=== PATIENT | male | born 2000 | race Hispanic/Latino ===

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

== ENCOUNTER 2024-02-29 21:21 | Emergency (ER) | payer BC, OTHER ==
[~2024-02-29] VITALS: Ht 175.3 cm; Wt 93.9 kg
--- NOTE | 2024-02-29 21:50 | ERN ---
ED Note History of Present Illness Stated Complaint: C/O PAIN TO RIGHT LITTLE FINGER; Chief Complaint: Finger Injury Time Seen by MD: 21:44 Dictation: PATIENT IS A 23-YEAR-OLD MALE HERE WITH COMPLAINTS OF RIGHT 5TH FINGER PAIN WITH ANGULATION AT THE D IP JOINT ONSET 1 HOUR PRIOR TO ARRIVAL. HE STATES HE WAS WALKING AT HOME WENT TO [employer] OPERATOR HIS NEPHEW, TRIPPED AND LANDED ON HIS EXTENDED RIGHT HAND. HE STATES HE GRABBED IT AND PULLED IT BACK INTO PLACE. REMAINS ANGULATED DISTALLY. NEUROVASCULAR CMS INTACT SKIN IS INTACT. Allergies: Coded Allergies: No Known Allergies (Unverified Allergy, Unknown, 02/29/24) Past Medical History Past Medical History: No Pertinent History Surgical History: None RN Note Reviewed/Agreed w/PFSH: Yes Review of System Dictation CONSTITUTIONAL: NEGATIVE EXCEPT FOR HPI HEAD/FACE: NEGATIVE EXCEPT FOR HPI EENT: NEGATIVE EXCEPT FOR HPI RESPIRATORY: NEGATIVE EXCEPT FOR HPI GASTROINTESTINAL/ABDOMINAL: NEGATIVE EXCEPT FOR HPI GENITOURINARY: NEGATIVE EXCEPT FOR HPI MUSCULOSKELETAL: NEGATIVE EXCEPT FOR HPI RIGHT 5TH FINGER PAIN DISTALLY INTEGUMENTARY: NEGATIVE EXCEPT FOR HPI NEUROLOGICAL/PSYCH: NEGATIVE EXCEPT FOR HPI HEMATOLOGIC/LYMPHATIC: NEGATIVE EXCEPT FOR HPI ALL SYSTEMS NEGATIVE, EXCEPT NOTED ABOVE. 13 POINT REVIEW OF SYSTEMS ASSESSED AND ALL NEGATIVE EXCEPT FOR ABOVE. Initial Vital Sign VS Vital Signs Date Time Temp Pulse Resp B/P (MAP) Pulse Ox O2 Delivery O2 Flow Rate FiO2 02/29/24 21:23 99.0 89 20 133/79 97 Room Air 02/29/24 21:56 0 21 Physical Exam Dictation VITAL SIGNS REVIEWED GENERAL APPEARANCE: ALERT, ORIENTED X 3, MILD ACUTE DISTRESS, WELL DEVELOPED, NOURISHED. HEAD AND FACE: NON-TRAUMATIC. EYES: PERRL, PINK CONJUNCTIVAS, EYELID NO TRAUMA, ANTERIOR CHAMBER WITH ARCUS SENILIS. EARS: PINNAS INTACT AND NO SIGNS OF TRAUMA OR ERYTHEMA EAR CANALS CLEAR AND NO DISCHARGE TM NO ERYTHEMA NOSE: NO DISCHARGE, NO BLEEDING. OROPHARYNX: MOUTH NORMAL, TONGUE PINK, PHARYNX CLEAR,NO ERYTHEMA, TONSILS NO EXUDATES, NO ABSCESSES NOTED, MUCOUS MEMBRANE MOIST NECK: SUPPLE, NON-TENDER, NO THYROMEGALY, NO MASSES, NO JVD, NO BRUITS BREAST:DEFERRED CHEST:NO TENDERNESS, NO CREPITUS, NO PARADOXICAL MOVEMENT, NO RETRACTIONS LUNGS:CLEAR, WELL-VENTILATED, SYMMETRIC, NO RALES, NO WHEEZING, NO RHONCHI, NO STRIDOR, GOOD BREATH SOUNDS BILATERALLY HEART: REGULAR RATE, REGULAR RHYTHM, NO MURMUR, NO GALLOPS VASCULAR: NO PERIPHERAL EDEMA, ABDOMEN: SOFT, POSITIVE BOWEL SOUNDS, NONDISTENDED, NO GUARDING, NONTENDER, NO REBOUND, NO MASSES NO HEPATOMEGALY, NO SPLENOMEGALY, NO TREJO'S SIGN, NO HERNIAS. RECTAL: DEFERRED GENITAL: DEFERRED NEUROLOGICAL: NORMAL SPEECH, MOTOR FUNCTION INTACT, SENSORY FUNCTION INTACT MUSCULOSKELETAL: NECK NONTENDER, FULL RANGE OF MOTION, BACK NONTENDER, FULL RANGE OF MOTION, EXTREMITIES: DECREASED RANGE OF MOTION WITH TENDERNESS TO RIGHT 5TH D IP JOINT. MILDLY ANGULATED SKIN: COLOR PINK, DRY, NO TURGOR, NO RASH, NO LACERATIONS, NO ABRASIONS, NO CONTUSIONS. LYMPHATIC: DEFERRED Results (Laboratory/Radiology) Laboratory/Radiology FINGER(S) 2+VWS RT CLINICAL HISTORY: INJURY COMPARISON: None TECHNIQUE: 2 images were obtained. FINDINGS: There is mild subluxation of the DIP joint of the fifth digit worrisome for underlying ligamentous injury. There is no identified bony trauma. IMPRESSION: Findings concerning for fifth digit ligamentous injury with no identified bony trauma Labs Reviewed?: Yes ED Course ED Course Orders Procedure Category Date Status Time Finger(S) 2+Vws Rt RAD 02/29/24 Resulted 21:26 Ibuprofen 800 Mg Tab PHA 02/29/24 Complete (Motrin) 22:00 Current Medications Medications (Trade) Dose Ordered Sig/[place] Route PRN Reason Start Time Stop Time Status Last Admin Dose Admin Ibuprofen (moTRIN) 800 mg ONCE ONCE PO 02/29/24 22:00 02/29/24 22:01 DC 02/29/24 21:56 Vital Signs Date Time Temp Pulse Resp B/P (MAP) Pulse Ox O2 Delivery O2 Flow Rate FiO2 02/29/24 21:56 98.8 82 18 126/72 98 Room Air* 0 21 02/29/24 21:23 99.0 89 20 133/79 97 Room Air 04/27/2034, PATIENT PLACED IN DORSAL SPLINT TO KEEP HIS DISTAL INTERPHALANGEAL JOINT BY TECH. DISTAL PHALANX WAS MILDLY HYPEREXTENDED DUE TO POSSIBLE RUPTURED LIGAMENT INJURY. EXPLAINED TO PATIENT THE NECESSITY TO FOLLOW UP WITH AN ORTHOPEDIC SURGEON IN THE NEXT SEVERAL DAYS AND MAINTAIN SPLINT. NEUROVASCULAR CMS INTACT POST PLACED Medical Decision Making MDM MEDICAL DISCHARGE MAKING BASED ON X-RAY OF RIGHT LITTLE FINGER AND SPLINT TO MAINTAIN DISTAL FINGER MILDLY HYPEREXTENDED DISCHARGED HOME WITH IBUPROFEN AND INSTRUCTIONS TO FOLLOW UP WITH DR. COTA DX & DISP Disposition: Discharge Departure Impression: Primary Impression: Rupture of ligament of finger of right hand Condition: Stable Scripts Ibuprofen (Ibuprofen 800 mg Tab) 800 Mg Tab 800 MG PO Q8H PRN for fever or pain, #30 TAB 0 Refills Prov: CARMELLA RITTER NP 02/29/24 Additional Instructions: FOLLOW-UP WITH PRIMARY CARE PROVIDER IN 1 TO 2 DAYS. TAKE MEDICATIONS DIRECTED HERE IN THE EMERGENCY ROOM. OKAY TO CONTINUE HOME MEDICATIONS UNLESS OTHERWISE DISCUSSED DURING YOUR VISIT IN THE EMERGENCY ROOM TODAY. RETURN TO YOUR NEAREST EMERGENCY ROOM IF SYMPTOMS WORSEN OR IF THERE IS NO IMPROVEMENT. CALL 911 IF YOU NEED IMMEDIATE ASSISTANCE. TAKE TYLENOL OR MOTRIN OVER-THE- COUNTER NEEDED AND IF NO CONTRAINDICATIONS ARE PRESENT. INCREASE ORAL HYDRATION. A WOUND CULTURE OR URINE CULTURE WAS ORDERED HERE IN THE EMERGENCY ROOM DEPARTMENT PLEASE FOLLOW-UP WITH PRIMARY CARE PROVIDER AND ADVISE THEM TO GET REPEAT PORTS FROM OUR FACILITY. IF YOU HAD ANY SHANTE WRAP/SPLINTS THAT WERE APPLIED HERE, PLEASE DO NOT REMOVE THEM UNTIL YOU SEE YOUR PRIMARY CARE OR SPECIALTY. SPLINT AND NO WEIGHT-BEARING UNTIL CLEARED BY ORTHOPEDIC SURGEON, CALL FOR AN APPOINTMENT SOON POSSIBLE. COOL COMPRESSES TO PAIN THREE TO 4 TIMES A DAY. Referrals: ANJEL CRUZ MD (PCP) ROSAMARIA SHELTON MD Time of Disposition: 22:39 I have reviewed the case, and I agree with, Diagnosis and Plan CARMELLA RITTER NP Feb 29, 2024 21:49
[2024-02-29] MEDS: ibuPROFEN 800 MG TAB PO ONE (21:56)
--- NOTE | 2024-02-29 22:05 | HMCIMG ---
FINGER(S) 2+VWS RT CLINICAL HISTORY: INJURY COMPARISON: None TECHNIQUE: 2 images were obtained. FINDINGS: There is mild subluxation of the DIP joint of the fifth digit worrisome for underlying ligamentous injury. There is no identified bony trauma. IMPRESSION: Findings concerning for fifth digit ligamentous injury with no identified bony trauma
[2024-02-29] MEDS ORDERED: IBUP-2077 PO (22:40)
--- NOTE | 2024-02-29 23:05 | NUR ---
FINGER SPLINT APPLIED ORDERED, CAPILLARY REFILL AND PULSES INTACT, WARM TO TOUCH
[2024-02-29 23:06] VITALS: BP 110/70; PULSE 78; RESP 18; TEMP 98.6; O2SAT 98
== END 2024-02-29 23:08 | disposition home or self-care (01) ==
LOC: EDH 21:21
DX: S63 Dislocation and sprain of joints and ligaments at wrist and hand level (principal); W01.0XXA Fall on same level from slipping, tripping and stumbling without subsequent striking against object, initial encounter; Y93.89 Activity, other specified; Y92.89 Other specified places as the place of occurrence of the external cause; Y99.8 Other external cause status
CPT/HCPCS: 29130; 73140; 99283